=== PATIENT | male | born 1975 | race Caucasian/White ===

== ENCOUNTER 2021-05-28 14:31 | Emergency (ER) | payer BC ==
[~2021-05-28] VITALS: Ht 193 cm; Wt 90.9 kg
[2021-05-28 14:41] VITALS: TEMP 99
[2021-05-28 16:41] LABS: BASO % 0.3 % (0.0-2.0); EOS # 0.2 (0.0-0.7); EOS % 2.6 % (0-4.0); GRAN # 5.3 (1.4-6.5); GRAN % 72.6 % (42.2-75.2); HEMATOCRIT 44.4 % (42.0-52.0); HEMOGLOBIN 15.7 g/dl (13.5-18.0); LYMPH # 1.2 (1.2-3.4); LYMPH % 16.7 % (20.0-51.0); MEAN CELL VOLUME 88 fl (80.0-100.0); MEAN CORPUSCULAR HEMOGLOBIN 31 pg (27.0-31.0); MEAN CORPUSCULAR HGB CONC 35 g/dl (33.0-37.0); MEAN PLATELET VOLUME 9.7 fl (7.4-10.4); MONO # 0.5 (0.1-0.6); MONO % 7.5 % (1.7-9.3); PLATELET COUNT 268 K/mm3 (130-400); RED BLOOD COUNT 5.03 M/mm3 (4.20-5.60); REDCELL DISTRIBUTION WIDTH-CV 12.4 % (11.5-14.5)
[2021-05-28 16:51] LABS: ALANINE AMINOTRANSFERASE 19 U/L (4-49); ALBUMIN 3.6 gm/dL (3.5-5.0); ALKALINE PHOSPHATASE 77 U/L (50-136); ANION GAP 5 mmol/L (7-16); AST,SGOT 27 U/L (15-37); BILIRUBIN,TOTAL 0.7 mg/dL (0.0-1.0); BLOOD UREA NITROGEN 11 mg/dL (9-20); CALCIUM 8.9 mg/dL (8.4-10.2); CARBON DIOXIDE 27 mmol/L (22-30); CHLORIDE 106 mmol/L (98-107); CREATININE, serum 1.04 (0.66-1.25); GLUCOSE 91 mg/dL (74-106); SODIUM 138 mmol/L (137-145); TOTAL PROTEIN 6.8 gm/dL (6.4-8.2)
[2021-05-28 16:53] LABS: C-REACTIVE PROTEIN 1.7 mg/dL (0.0-0.9); LIPASE 54 U/L (23-300)
[2021-05-28 17:02] LABS: TROPONIN-I < 0.012 ng/mL (0.000-0.035)
[2021-05-28] MEDS ORDERED: FLEXERIL 1010 MG/TAB PO (18:06)
[2021-05-28 18:18] VITALS: BP 130/86; PULSE 84
[2021-05-28] MEDS ORDERED: ZITHROMAX Z PA250 MG PO (18:49)
== END 2021-05-28 18:18 | disposition home or self-care (01) ==
LOC: COL.ER 14:31
PROVIDERS: Nurse Practitioner
DX: R07.89 Other chest pain (principal); I10 Essential (primary) hypertension
CPT/HCPCS: J1885